=== PATIENT | male | born 1945 ===

== ENCOUNTER 2017-07-12 11:24 | Outpatient (CLI) | payer OTHER ==
[~2017-07-12 11:24] MED LIST: CEFADROXIL500 MG PO; CRESTOR5 MG; DIOVAN HCT 160-1 TA1; LOVAZA1 G; SYNTHROID100 MCG; TOPROL XL100 M1
== END 2017-07-12 15:01 | disposition home or self-care (01) ==
LOC: RAD 11:24
DX: M17.11 Unilateral primary osteoarthritis, right knee (principal)

== ENCOUNTER 2017-09-08 10:57 | Outpatient (CLI) | payer OTHER ==
[~2017-09-08 10:57] MED LIST changes: +MEDROLPACK PO; +ULTRACET PO
== END 2017-09-08 11:07 | disposition home or self-care (01) ==
LOC: NUCLEAR 10:57
DX: M85.88 Other specified disorders of bone density and structure, other site (principal)